=== PATIENT | female | born 1960 | race Caucasian/White ===

== ENCOUNTER 2016-11-05 07:14 | Emergency (ER) | payer OTHER | END 2016-11-05 08:09 | disposition home or self-care (01) | LOC: D.ER 07:14 | DX: G58.8 Other specified mononeuropathies (principal); E03.9 Hypothyroidism, unspecified ==

== ENCOUNTER → 2018-06-05 16:06 | Outpatient (CLI) | payer OTHER | END | disposition home or self-care (01) | LOC: D.MRI 06-03 07:00 | DX: S89.91XA Unspecified injury of right lower leg, initial encounter (principal); X58.XXXA Exposure to other specified factors, initial encounter ==